=== PATIENT | female | born 1980 | race Caucasian/White ===

== ENCOUNTER 2019-02-11 11:45 | Inpatient (IN) | payer OTHER ==
[2019-02-11] MEDS ORDERED: ZOFRAN IV ONE (12:14)
[2019-02-11] MEDS ORDERED: SUBLIMAZE IV ONE (12:14)
[2019-02-11] MEDS ORDERED: ASPIRIN PO ONE (12:14)
--- NOTE | 2019-02-11 12:20 | Emergency Department Report ---
HPI - General Chief Complaint: Chest Pain Time Seen by Provider: 02/11/19 12:02 - HPI HPI: Room 26 The patient is a 38-year-old female presenting with a chief complaint of chest pain and calf pain. Patient is currently at [facility] for suicidal id eation. The patient states 3 days ago she developed bilateral calf pain which has worsened over time. The patient states yesterday she developed substernal chest pain described as sharp and dull in nature. Patient states the pain has been intermittent and associated with shortness of breath, nausea/vomiting and diaphoresis. Patient admits to occasional pleurisy. The patient states she's had a cough has been nonproductive since yesterday. The patient states she has a history of a DVT in the lower extremity years ago and is not currently on anticoagulation. Patient states her last stress test occurred approximately 5 years ago but she has never had a cardiac catheterization Location: [See above] Duration: [See above] Quality: Sharp/dull Severity: 4-5/10 Modifying factors: [see above] Context: [see above] Mode of transportation: [not driving] ED Past Medical Hx - Past Medical History Previous Medical History?: Yes Hx Headaches / Migraines: Yes Hx Psychiatric Treatment: Yes (bipolar) Additional medical history: hypotension from meds from migraines - Surgical History Past Surgical History?: Yes Additional Surgical History: tummy tuck, lipo - Family History Family history: no significant - Social History Smoking Status: Never Smoker Substance Use Type: None (denies illicit drug use), Alcohol (occasional) ED Review of Systems ROS: Stated complaint: CHEST/CALF PAIN Other details as noted in HPI Constitutional: diaphoresis Eyes: denies: eye pain ENT: denies: throat pain Respiratory: shortness of breath Cardiovascular: chest pain Gastrointestinal: nausea, vomiting Genitourinary: denies: dysuria Musculoskeletal: myalgia Neurological: denies: headache Physical Exam - Physical Exam Vital Signs: Vital Signs 02/11/19 11:51 Temperature 98.1 F Pulse Rate 86 Respiratory 16 Rate Blood Pressure 116/84 [Left] O2 Sat by Pulse 95 Oximetry Physical Exam: GENERAL: The patient is well-developed well-nourished female lying on stretcher not appearing to be in acute distress. [] HEENT: Normocephalic. Atraumatic. Extraocular motions are intact. Patient has moist mucous membranes. NECK: Supple. Trachea midline CHEST/LUNGS: Clear to auscultation. There is no respiratory distress noted. HEART/CARDIOVASCULAR: Regular. There is no tachycardia. There is no gallop rub or murmur. ABDOMEN: Abdomen is soft, nontender. Patient has normal bowel sounds. There is no abdominal distention. SKIN: There is no rash. There is no edema. There is no diaphoresis. NEURO: The patient is awake, alert, and oriented. The patient is cooperative. The patient has normal speech MUSCULOSKELETAL: There is bilateral calf tenderness. No cords felt. There is no evidence of acute injury. ED Course Vital Signs 02/11/19 11:51 Temperature 98.1 F Pulse Rate 86 Respiratory 16 Rate Blood Pressure 116/84 [Left] O2 Sat by Pulse 95 Oximetry ED Medical Decision Making - Lab Data Result diagrams: 02/11/19 15:08 02/11/19 12:00 Laboratory Tests 02/11/19 02/11/19 02/11/19 12:00 12:00 12:00 WBC 7.8 RBC 4.41 Hgb 12.1 Hct 37.5 MCV 85 MCH 28 MCHC 32 RDW 12.8 L Plt Count 249 Lymph % (Auto) 18.3 Overton % (Auto) 7.7 H Eos % (Auto) 1.2 Baso % (Auto) 0.5 Lymph # 1.4 Overton # 0.6 Eos # 0.1 Baso # 0.0 Seg Neutrophils % 72.3 H Seg Neutrophils # 5.6 PT INR APTT D-Dimer 979.05 H Sodium 137 Potassium 4.1 Chloride 99.0 Carbon Dioxide 26 Anion Gap 16 BUN 9 Creatinine 0.6 L Estimated GFR > 60 BUN/Creatinine Ratio 15 Glucose 111 H Calcium 8.9 Troponin T < 0.010 HCG, Qual 02/11/19 02/11/19 02/11/19 12:00 14:37 15:08 WBC RBC Hgb 11.8 Hct 35.7 MCV MCH MCHC RDW Plt Count 247 Lymph % (Auto) Overton % (Auto) Eos % (Auto) Baso % (Auto) Lymph # Overton # Eos # Baso # Seg Neutrophils % Seg Neutrophils # PT 13.8 INR 1.00 APTT 26.9 D-Dimer Sodium Potassium Chloride Carbon Dioxide Anion Gap BUN Creatinine Estimated GFR BUN/Creatinine Ratio Glucose Calcium Troponin T HCG, Qual Negative - EKG Data -: EKG Interpreted by Me EKG shows normal: sinus rhythm Rate: normal - EKG Data When compared to previous EKG there are: previous EKG unavailable Interpretation: nonspecific ST-T wave amarilys (T-wave inversion in leads 3, V2, V3, V4) - Radiology Data Radiology results: report reviewed (VQ scan), image reviewed (chest x-ray, VQ scan) interpreted by me: Chest x-ray-no focal infiltrates, no pneumothorax [facility] [address] [place] [address] Nuclear Medicine Report Signed Patient: TEMO BENSON MR#: [id number] : 1980 Acct:[id number] Age/Sex: 38 / F ADM Date: 02/11/19 Loc: ED Attending Dr: Ordering Physician: MARYANN JACOB MD Date of Service: 02/11/19 Procedure(s): NM lung scan perf/vent Accession Number(s): [id number] cc: MARYANN JACOB MD PROCEDURE: NM LUNG SCAN PERF/VENT TECHNIQUE: 4.6 mCi Tc-99m MAA was injected IV for pulmonary perfusion imaging in multiple projections. 15 mCi Xenon-133 was inhaled for pulmonary ventilation imaging in multiple projections. HISTORY: chest pain, shortness of breath COMPARISONS: Chest x-ray February 11, 2019. FINDINGS: Ventilation: Uniform. Perfusion: 1 large unmatched defect in both upper lobes. Small subsegmental perfusion deficits in both upper lobes and both lower lobes. IMPRESSION: * Based on the PIOPED study, findings represent high probability for PE. This document is electronically signed by Evan Bland MD., February 11 2019 03:31:51 PM ET Transcribed By: TYM Dictated By: EVAN BLAND MD Electronically Authenticated By: EVAN BLAND MD Signed Date/Time: 02/11/19 1533 DD/ 1432 TD/TT: 02/11/19 1435 - Differential Diagnosis PE, DVT, ACS, pericarditis, GERD, bronchitis Critical care attestation.: If time is entered above; I have spent that time in minutes in the direct care of this critically ill patient, excluding procedure time. ED Disposition Clinical Impression: Chest pain, T wave inversion in EKG, Pulmonary embolus, Left leg DVT Disposition: -09 OP ADMIT IP TO THIS HOSP Is pt being admited?: Yes Does the pt Need Aspirin: Yes Condition: Fair Instructions: Chest Pain (ED) Time of Disposition: 15:40 (Hospitalist notified (Dr Acevedo))
[2019-02-11 12:23] LABS: Basophils % (Auto) 0.5 % (0.0-1.8); Eosinophils # (Auto) 0.1 K/mm3 (0.0-0.4); Eosinophils % (Auto) 1.2 % (0.0-4.3); Hematocrit 37.5 % (30.3-42.9); Hemoglobin 12.1 gm/dl (10.1-14.3); Lymphocytes # (Auto) 1.4 K/mm3 (1.2-5.4); Lymphocytes % (Auto) 18.3 % (13.4-35.0); Mean Corpuscular HGB Conc 32 % (30-34); Mean Corpuscular Volume 85 fl (79-97); Monocytes # (Auto) 0.6 K/mm3 (0.0-0.8); Monocytes % (Auto) 7.7 % (0.0-7.3); Platelet Count 249 K/mm3 (140-440); Red Blood Count 4.41 M/mm3 (3.65-5.03); Red Cell Distribution Width 12.8 % (13.2-15.2)
[2019-02-11 12:43] LABS: BUN/Creatinine Ratio 15; Blood Urea Nitrogen 9 mg/dL (7-17); Calcium 8.9 mg/dL (8.4-10.2); Hemolysis Index 52
[2019-02-11] MEDS ORDERED: HEPARIN 10,000 UNITS/10 ML IV ONE (14:35)
--- NOTE | 2019-02-11 14:37 | Vascular Lab Report ---
PROCEDURE: VL VENOUS DUPLEX LE BILAT TECHNIQUE: Duplex Doppler sonography of the BILATERAL lower extremities. Garcia scale imaging with and without compression, spectral waveform analysis with and without augmentation, and color flow Dopple r were employed. HISTORY: bilateral pain COMPARISONS: None FINDINGS: RIGHT lower EXTREMITY: Deep Venous Thrombus: None Superficial Venous Thrombus: None Venous valvular incompetence: None Soft tissue abnormality: None LEFT LOWER EXTREMITY: Deep Venous Thrombus: Echogenic thrombus within the gastrocnemius vein. The remainder of the veins a re patent and compressible. Superficial Venous Thrombus: None Venous valvular incompetence: None Soft tissue abnormality: None IMPRESSION: Deep venous thrombosis in the left gastrocnemius vein. Patent veins of the right lower extremity. Findings were discussed with Dr. Khan at 2:34 PM, Eastern standard time, on 02/11/2019. This document is electronically signed by Dahlia Hong MD., February 11 2019 02:35:10 PM ET
[2019-02-11 14:45] LABS: Partial Thromboplastin Time 26.9 Sec. (24.2-36.6)
[2019-02-11] MEDS ORDERED: HEPARIN/ 0.45% NACL-25,000 UNIT/500 ML 25,000 UNIT/500 ML BAG IV SCH (15:00)
[2019-02-11 15:22] LABS: Hematocrit 35.7 % (30.3-42.9); Hemoglobin 11.8 gm/dl (10.1-14.3)
--- NOTE | 2019-02-11 15:33 | Nuclear Medicine Report ---
PROCEDURE: NM LUNG SCAN PERF/VENT TECHNIQUE: 4.6 mCi Tc-99m MAA was injected IV for pulmonary perfusion imaging in multiple projection s. 15 mCi Xenon-133 was inhaled for pulmonary ventilation imaging in multiple projections. HISTORY: chest pain, shortness of breath COMPARISONS: Chest x-ray February 11, 2019. FINDINGS: Ventilation: Uniform. Perfusion: 1 large unmatched defect in both upper lobes. Small subsegmental perfusion deficits in bot h upper lobes and both lower lobes. IMPRESSION: * Based on the PIOPED study, findings represent high probability for PE. This document is electronically signed by Evan Lopez MD., February 11 2019 03:31:51 PM ET
--- NOTE | 2019-02-11 15:37 | XRay Report ---
PROCEDURE: XR CHEST 1V AP TECHNIQUE: Single frontal view of the chest HISTORY: chest pain COMPARISONS: None. FINDINGS: The cardiomediastinal silhouette is normal in appearance. The lungs are clear without focal consolidation. No pleural effusion or pneumothorax. No acute bony or soft tissue abnormality. IMPRESSION: No acute cardiopulmonary disease. This document is electronically signed by Dahlia Hong MD., February 11 2019 03:35:23 PM ET
[2019-02-11] MEDS ORDERED: SODIUM CHLORIDE FLUSH SYRINGE 10 ML IV PRN (18:23)
[2019-02-11] MEDS ORDERED: TYLENOL PO PRN (18:23)
--- NOTE | 2019-02-11 18:23 | History and Physical Report ---
History of Present Illness Date of examination: 02/11/19 Date of admission: 02/11/19 15:13 Chief complaint: Ghassan calf pain 3 days History of present illness: 38-year-old female presenting with a chief complaint of chest pain and calf pain. Patient is currently at [facility] for suicidal ideation. The patient states 3 days ago she developed bilateral calf pain which has worsened over time. The patient states yesterday she developed substernal chest pain mani cribed as sharp and dull in nature. Patient states the pain has been intermittent and associated with shortness of breath, nausea/vomiting and diaphoresis. Patient admits to occasional pleurisy. History of DVT many years ago.Not on anticoagulation. Past Medical History Previous Medical History?: Yes Hx Headaches / Migraines: Yes Hx Psychiatric Treatment: Yes (bipolar) Additional medical history: hypotension from meds from migraines Surgical History Past Surgical History?: Yes Additional Surgical History: tummy tuck, lipo Family History Family history: no significant Social History Smoking Status: Never Smoker Substance Use Type: None (denies illicit drug use), Alcohol (occasional) Review of Systems ROS: Stated complaint: CHEST/CALF PAIN Other details as noted in HPI Constitutional: diaphoresis Eyes: denies: eye pain ENT: denies: throat pain Respiratory: shortness of breath Cardiovascular: chest pain Gastrointestinal: nausea, vomiting Genitourinary: denies: dysuria Musculoskeletal: myalgia Neurological: denies: headache Medications and Allergies Allergies Allergy/AdvReac Type Severity Reaction Status Date / Time iodine Allergy Unknown Verified 02/11/19 11:52 Home Medications Medication Instructions Recorded Confirmed Last Taken Type ARIPiprazole [Abilify] 10 mg PO QDAY 02/11/19 02/11/19 Unknown History Active Meds: Active Medications Heparin Sodium/Sodium Chloride (Heparin/ 0.45% Nacl-25,000 Unit/500 Ml) 25,000 unit in 500 mls @ 21 mls/hr IV TITR YUMI; Protocol Last Admin: 02/11/19 15:32 Dose: 1,050 units/hr, 21 mls/hr Documented by: Exam - Constitutional Vitals: Temp Pulse Resp BP Pulse Ox 97.8 F 67 13 102/67 99 02/11/19 15:37 02/11/19 15:37 02/11/19 15:37 02/11/19 15:37 02/11/19 15:37 General appearance: Present: no acute distress, well-nourished - EENT Eyes: Present: PERRL ENT: hearing intact, clear oral mucosa - Neck Neck: Present: supple, normal ROM - Respiratory Respiratory effort: normal Respiratory: bilateral: CTA - Cardiovascular Heart rate: 78 Rhythm: regular Heart Sounds: Present: S1 & S2. Absent: rub, click - Extremities Extremities: pulses symmetrical, No edema Extremity abnormal: tenderness (Bilateral) Peripheral Pulses: within normal limits - Abdominal General gastrointestinal: Present: soft, non-tender, non-distended, normal bowel sounds Female genitourinary: Present: normal - Rectal Rectal Exam: deferred - Integumentary Integumentary: Present: clear, warm, dry - Musculoskeletal Musculoskeletal: gait normal, strength equal bilaterally - Psychiatric Psychiatric: appropriate mood/affect, intact judgment & insight - Neurologic Neurologic: CNII-XII intact, moves all extremities - Allied Health Allied health notes reviewed: nursing, case management Results - Labs CBC & Chem 7: 02/12/19 04:28 02/12/19 04:28 Labs: Laboratory Last Values WBC 7.8 K/mm3 (4.5-11.0) 02/11/19 12:00 RBC 4.41 M/mm3 (3.65-5.03) 02/11/19 12:00 Hgb 11.8 gm/dl (10.1-14.3) 02/11/19 15:08 Hct 35.7 % (30.3-42.9) 02/11/19 15:08 MCV 85 fl (79-97) 02/11/19 12:00 MCH 28 pg (28-32) 02/11/19 12:00 MCHC 32 % (30-34) 02/11/19 12:00 RDW 12.8 % (13.2-15.2) L 02/11/19 12:00 Plt Count 247 K/mm3 (140-440) 02/11/19 15:08 Lymph % (Auto) 18.3 % (13.4-35.0) 02/11/19 12:00 Latimer % (Auto) 7.7 % (0.0-7.3) H 02/11/19 12:00 Eos % (Auto) 1.2 % (0.0-4.3) 02/11/19 12:00 Baso % (Auto) 0.5 % (0.0-1.8) 02/11/19 12:00 Lymph # 1.4 K/mm3 (1.2-5.4) 02/11/19 12:00 Latimer # 0.6 K/mm3 (0.0-0.8) 02/11/19 12:00 Eos # 0.1 K/mm3 (0.0-0.4) 02/11/19 12:00 Baso # 0.0 K/mm3 (0.0-0.1) 02/11/19 12:00 Seg Neutrophils % 72.3 % (40.0-70.0) H 02/11/19 12:00 Seg Neutrophils # 5.6 K/mm3 (1.8-7.7) 02/11/19 12:00 PT 13.8 Sec. (12.2-14.9) 02/11/19 14:37 INR 1.00 (0.87-1.13) 02/11/19 14:37 APTT 26.9 Sec. (24.2-36.6) 02/11/19 14:37 D-Dimer 979.05 ng/mlDDU (0-234) H 02/11/19 12:00 Sodium 137 mmol/L (137-145) 02/11/19 12:00 Potassium 4.1 mmol/L (3.6-5.0) 02/11/19 12:00 Chloride 99.0 mmol/L (98-107) 02/11/19 12:00 Carbon Dioxide 26 mmol/L (22-30) 02/11/19 12:00 Anion Gap 16 mmol/L 02/11/19 12:00 BUN 9 mg/dL (7-17) 02/11/19 12:00 Creatinine 0.6 mg/dL (0.7-1.2) L 02/11/19 12:00 Estimated GFR > 60 ml/min 02/11/19 12:00 BUN/Creatinine Ratio 15 % 02/11/19 12:00 Glucose 111 mg/dL (65-100) H 02/11/19 12:00 Calcium 8.9 mg/dL (8.4-10.2) 02/11/19 12:00 Troponin T < 0.010 ng/mL (0.00-0.029) 02/11/19 12:00 HCG, Qual Negative (Negative) 02/11/19 12:00 Short CBC 02/11/19 02/11/19 02/12/19 Range/Units 12:00 15:08 04:28 WBC 7.8 6.3 (4.5-11.0) K/mm3 Hgb 12.1 11.8 11.3 (10.1-14.3) gm/dl Hct 37.5 35.7 34.3 (30.3-42.9) % Plt Count 249 247 243 (140-440) K/mm3 BMP 02/11/19 02/12/19 12:00 04:28 Sodium 137 137 Potassium 4.1 3.5 L Chloride 99.0 98.4 Carbon Dioxide 26 28 BUN 9 10 Creatinine 0.6 L 0.7 Glucose 111 H 98 Calcium 8.9 8.3 L Cardiac Enzymes 02/11/19 Range/Units 12:00 Troponin T < 0.010 (0.00-0.029) ng/mL Liver Function 02/12/19 Range/Units 04:28 Total Bilirubin 0.20 (0.1-1.2) mg/dL AST 27 (5-40) units/L ALT 25 (7-56) units/L Alkaline Phosphatase 63 (35-129) units/L Albumin 3.4 L (3.9-5) g/dL - Imaging and Cardiology EKG: report reviewed (NSR 90/min lvh) Imaging and Cardiology: LE Venous Duplex scan IMPRESSION: Deep venous thrombosis in the left gastrocnemius vein. Patent veins of the right lower extremity. V/q scan FINDINGS: Ventilation: Uniform. Perfusion: 1 large unmatched defect in both upper lobes. Small subsegmental perfusion deficits in both upper lobes and both lower lobes. IMPRESSION: * Based on the PIOPED study, findings represent high probability for PE. Assessment and Plan Advance Directives: Yes (Full code) VTE prophylaxis?: Chemical Plan of care discussed with patient/family: Yes - Patient Problems (1) Left leg DVT Current Visit: Yes Status: Acute Plan to address problem: Started on IV Heparin Will defer to primary team reg Eliquis/Coumadin (2) Pulmonary embolus Current Visit: Yes Status: Acute Qualifiers: Chronicity: acute Acute cor pulmonale presence: without acute cor pulmonale Plan to address problem: Started on IV Heparin Will defer to Primary team reg Eliquis/Coumadin Vascular surgery consulted reg TESS (3) Suicidal ideation Current Visit: Yes Status: Acute Plan to address problem: From [place] consult requested (4) DVT prophylaxis Current Visit: Yes Status: Acute Plan to address problem: On IV Heparin and GI prophylaxis
[2019-02-11] MEDS ORDERED: DILAUDID IV PRN (18:24)
[2019-02-11] MEDS ORDERED: D5NS 1,000 ML IV SCH (19:00)
[2019-02-11] MEDS ORDERED: PERCOCET 5/325 ONE (20:11)
[2019-02-11] MEDS: PERCOCET 5/325 PO PRN (20:18)
[2019-02-11] MEDS: SODIUM CHLORIDE FLUSH SYRINGE 10 ML IV SCH (22:22)
[2019-02-12] MEDS: ZOFRAN IV PRN (04:31)
[2019-02-12 05:05] LABS: Basophils % (Auto) 0.6 % (0.0-1.8); Eosinophils # (Auto) 0.2 K/mm3 (0.0-0.4); Eosinophils % (Auto) 2.7 % (0.0-4.3); Hematocrit 34.3 % (30.3-42.9); Hemoglobin 11.3 gm/dl (10.1-14.3); Lymphocytes # (Auto) 2.3 K/mm3 (1.2-5.4); Lymphocytes % (Auto) 36.3 % (13.4-35.0); Mean Corpuscular HGB Conc 33 % (30-34); Mean Corpuscular Volume 85 fl (79-97); Monocytes # (Auto) 0.6 K/mm3 (0.0-0.8); Monocytes % (Auto) 8.9 % (0.0-7.3); Platelet Count 243 K/mm3 (140-440); Red Blood Count 4.04 M/mm3 (3.65-5.03); Red Cell Distribution Width 13.2 % (13.2-15.2)
[2019-02-12 05:11] LABS: Alanine Aminotransferase 25 units/L (7-56); Albumin 3.4 g/dL (3.9-5); BUN/Creatinine Ratio 14; Blood Urea Nitrogen 10 mg/dL (7-17); Calcium 8.3 mg/dL (8.4-10.2); Hemolysis Index 3
[2019-02-12] MEDS ORDERED: NACL 0.9% 500 ML 500 ML IV ONE (09:11)
[2019-02-12] MEDS ORDERED: K-DUR PO ONE (09:12)
[2019-02-12] MEDS: SODIUM CHLORIDE FLUSH SYRINGE 10 ML IV SCH ×2 (09:52→22:54)
[2019-02-12] MEDS ORDERED: ELIQUIS PO SCH (12:00)
[2019-02-12] MEDS: ELIQUIS PO SCH ×2 (14:45→22:54)
--- NOTE | 2019-02-12 15:20 | Consultation ---
History of Present Illness - Reason for Consult Consult date: 02/12/19 - History of Present Illness She is a 38-year-old female who began having mostly left calf discomfort and soreness during a hospitalization for an unrelated psychiatric issue. The discomfort worsened over the next several days she developed chest pain and shortness of breath. She was sent to the emergency room at [facility] where a lung scan was performed (V/Q) . Reported as high probability of pulmonary embolus. Subsequent venous duplex scan showed left gastroc venous thrombosis. She was begun on heparin intravenously. We were consulted to evaluate her for further treatment. There is a recent history of traveling to [place] within the last 6 weeks. She also has noted that on previous trips she would get left calf and foot swelling a lesser amount noted on the right. He didn't complain of previous soreness or known history of DVT but did note that the feet would remain swollen for several days upon arrival. Her cc had suspected this was due to the high salt content of [place]. She notes she did have some difficulty swelling during pregnancies but her last was 15 years ago. She denies the use of control pills. Not take hormones. She knows of no known hypercoagulable diagnoses. Family history is positive for lupus in a grandmother but no other clotting disorders. Past History Past Medical History: DVT, pulmonary embolism Past Surgical History: Other (tummy tuck, liposuction) Social history: , smoking Family history: other (Lupus, stroke) Medications and Allergies Allergies Allergy/AdvReac Type Severity Reaction Status Date / Time iodine Allergy Unknown Verified 02/11/19 11:52 Home Medications Medication Instructions Recorded Confirmed Last Taken Type ARIPiprazole [Abilify] 10 mg PO QDAY 02/11/19 02/11/19 Unknown History Active Meds: Active Medications Acetaminophen (Tylenol) 650 mg PO Q4H PRN PRN Reason: Pain MILD(1-3)/Fever >100.5/TRINH Apixaban (Eliquis) 10 mg PO Q12HR [facility]; Protocol Last Admin: 02/12/19 14:45 Dose: 10 mg Documented by: Hydromorphone HCl (Dilaudid) 0.5 mg IV Q3H PRN PRN Reason: Pain , Severe (7-10) Ondansetron HCl (Zofran) 4 mg IV Q8H PRN PRN Reason: Nausea And Vomiting Last Admin: 02/12/19 04:31 Dose: 4 mg Documented by: Oxycodone/Acetaminophen (Percocet 5/325) 1 tab PO Q6H PRN PRN Reason: Pain, Moderate (4-6) Last Admin: 02/11/19 20:18 Dose: 1 tab Documented by: Sodium Chloride (Sodium Chloride Flush Syringe 10 Ml) 10 ml IV BID YUMI Last Admin: 02/12/19 09:52 Dose: 10 ml Documented by: Sodium Chloride (Sodium Chloride Flush Syringe 10 Ml) 10 ml IV PRN PRN PRN Reason: LINE FLUSH Review of Systems All systems: negative (that in the HPI) Exam - Physical Exam Narrative exam: She is an alert and oriented 38-year-old female in no acute distress. She is on room air. HEENT examination reveals anicteric sclerae mucous membranes are moist. Lungs are clear to auscultation and percussion. Neck reveals a regular rate and rhythm no murmurs or gallops. Abdomen is soft without hepatosplenomegaly. Tummy tuck incisions are noted. Lower extremity show normal pedal pulses. No significant swelling. No skin discoloration. Minor left calf discomfort midline posterior top of the calf over the gastroc/ soleus plexus. Neurological examination is normal. - Constitutional Vitals: Temp Pulse Resp BP Pulse Ox 97.7 F 83 14 119/72 96 02/12/19 12:05 02/12/19 12:05 02/12/19 12:05 02/12/19 12:05 02/12/19 12:05 Results - Labs CBC & Chem 7: 02/12/19 04:28 02/12/19 04:28 Labs: Abnormal lab results 02/11/19 02/12/19 02/12/19 Range/Units 20:56 04:28 04:28 Lymph % (Auto) 36.3 H (13.4-35.0) % Harvey % (Auto) 8.9 H (0.0-7.3) % Heparin Anti-Xa Level 0.71 H (0.3-0.7) U.I./ml Potassium 3.5 L (3.6-5.0) mmol/L Calcium 8.3 L (8.4-10.2) mg/dL Albumin 3.4 L (3.9-5) g/dL - Imaging and Cardiology Venous US: report reviewed Assessment and Plan - Patient Problems (1) Left leg DVT Current Visit: Yes Status: Acute Qualifiers: Affected thrombotic vein of extremity: other lower extremity vein Chronicity: acute Qualified Code(s): I82.492 - Acute embolism and thrombosis of other specified deep vein of left lower extremity Plan to address problem: Patient be placed on oral anticoagulant and would recommend one of the newer oral anticoagulants. Would discontinue heparin 2 hours after initiation of therapy. She can be out of bed and ambulatory. I am not totally sure if this is a provoked or unprovoked thrombus although she did have travel within the last 6 weeks. Would consider hematology evaluation for underlying hypercoagulable state. This could be initiated and/or completed as an outpatient. (2) Pulmonary embolus Current Visit: Yes Status: Acute Qualifiers: Chronicity: acute Acute cor pulmonale presence: without acute cor pulmonale Qualified Code(s): I26.99 - Other pulmonary embolism without acute cor pulmonale Plan to address problem: Would treat for 6 months of oral anticoagulant. Consider hypercoagulable evaluation prior to discontinuation. Patient is at the low risk of major complications of her pulmonary embolism and does not require thrombolyzes. From a purely vascular standpoint patient can be discharged after 2 hours from initiation of multiple oral anticoagulant therapy and discontinuation of her heparin. She will follow up in our office in several weeks for repeat lower extremity duplex scanning
--- NOTE | 2019-02-12 16:18 | Progress Note ---
Assessment and Plan Assessment and plan: Left lower extremity DVT/PE -Probably provoked due to recent travel and Ist episode. However, patient r eported possible family history of clot -Heparin drip discontinued, eliquis started -For out-pt hematology follow-up History of bipolar disorder with suicidal ideation -Mental health team consulted Mild hypokalemia -Repleted, we'll monitor H/O migraine headaches -Stable Chronic hypotension -Stable Disposition: For possible discharge in a.m. if clinically stable History Interval history: Patient has no new complaints. Her left leg pain has improved. Hospitalist Physical - Constitutional Vitals: Temp Pulse Resp BP Pulse Ox 97.7 F 83 14 119/72 96 02/12/19 12:05 02/12/19 12:05 02/12/19 12:05 02/12/19 12:05 02/12/19 12:05 General appearance: Present: no acute distress, well-nourished - EENT Eyes: Present: PERRL, EOM intact ENT: hearing intact, clear oral mucosa - Neck Neck: Present: supple - Respiratory Respiratory effort: normal Respiratory: bilateral: CTA - Cardiovascular Rhythm: regular Heart Sounds: Present: S1 & S2 - Extremities Extremities: No edema - Abdominal General gastrointestinal: soft, non-tender, normal bowel sounds - Integumentary Integumentary: Present: clear, warm, dry - Neurologic Neurologic: CNII-XII intact Results - Labs CBC & Chem 7: 02/12/19 04:28 02/12/19 04:28 Labs: Laboratory Last Values WBC 6.3 K/mm3 (4.5-11.0) 02/12/19 04:28 RBC 4.04 M/mm3 (3.65-5.03) 02/12/19 04:28 Hgb 11.3 gm/dl (10.1-14.3) 02/12/19 04:28 Hct 34.3 % (30.3-42.9) 02/12/19 04:28 MCV 85 fl (79-97) 02/12/19 04:28 MCH 28 pg (28-32) 02/12/19 04:28 MCHC 33 % (30-34) 02/12/19 04:28 RDW 13.2 % (13.2-15.2) 02/12/19 04:28 Plt Count 243 K/mm3 (140-440) 02/12/19 04:28 Lymph % (Auto) 36.3 % (13.4-35.0) H 02/12/19 04:28 [place] % (Auto) 8.9 % (0.0-7.3) H 02/12/19 04:28 Eos % (Auto) 2.7 % (0.0-4.3) 02/12/19 04:28 Baso % (Auto) 0.6 % (0.0-1.8) 02/12/19 04:28 Lymph # 2.3 K/mm3 (1.2-5.4) 02/12/19 04:28 [place] # 0.6 K/mm3 (0.0-0.8) 02/12/19 04:28 Eos # 0.2 K/mm3 (0.0-0.4) 02/12/19 04:28 Baso # 0.0 K/mm3 (0.0-0.1) 02/12/19 04:28 Seg Neutrophils % 51.5 % (40.0-70.0) 02/12/19 04:28 Seg Neutrophils # 3.2 K/mm3 (1.8-7.7) 02/12/19 04:28 PT 13.8 Sec. (12.2-14.9) 02/11/19 14:37 INR 1.00 (0.87-1.13) 02/11/19 14:37 APTT 26.9 Sec. (24.2-36.6) 02/11/19 14:37 D-Dimer 979.05 ng/mlDDU (0-234) H 02/11/19 12:00 Heparin Anti-Xa Level 0.60 U.I./ml (0.3-0.7) 02/12/19 04:28 Sodium 137 mmol/L (137-145) 02/12/19 04:28 Potassium 3.5 mmol/L (3.6-5.0) L 02/12/19 04:28 Chloride 98.4 mmol/L (98-107) 02/12/19 04:28 Carbon Dioxide 28 mmol/L (22-30) 02/12/19 04:28 Anion Gap 14 mmol/L 02/12/19 04:28 BUN 10 mg/dL (7-17) 02/12/19 04:28 Creatinine 0.7 mg/dL (0.7-1.2) 02/12/19 04:28 Estimated GFR > 60 ml/min 02/12/19 04:28 BUN/Creatinine Ratio 14 % 02/12/19 04:28 Glucose 98 mg/dL (65-100) 02/12/19 04:28 Hemoglobin A1c 5.7 % (4-6) 02/11/19 15:08 Calcium 8.3 mg/dL (8.4-10.2) L 02/12/19 04:28 Total Bilirubin 0.20 mg/dL (0.1-1.2) 02/12/19 04:28 AST 27 units/L (5-40) 02/12/19 04:28 ALT 25 units/L (7-56) 02/12/19 04:28 Alkaline Phosphatase 63 units/L (35-129) 02/12/19 04: Troponin T < 0.010 ng/mL (0.00-0.029) 02/11/19 12:00 Total Protein 6.3 g/dL (6.3-8.2) 02/12/19 04:28 Albumin 3.4 g/dL (3.9-5) L 02/12/19 04:28 Albumin/Globulin Ratio 1.2 % 02/12/19 04:28 HCG, Qual Negative (Negative) 02/11/19 12:00 Active Medications - Current Medications Current Medications: Generic Name Dose Route Start Last Admin Trade Name Freq PRN Reason Stop Dose Admin Acetaminophen 650 mg 02/11/19 18:23 Tylenol PO Q4H PRN Pain MILD(1-3)/Fever >100.5/TRINH Apixaban 10 mg 02/12/19 10:00 02/12/19 14:45 Eliquis PO 10 mg Q12HR YUMI Administration Protocol Hydromorphone HCl 0.5 mg 02/11/19 18:24 Dilaudid IV Q3H PRN Pain , Severe (7-10) Ondansetron HCl 4 mg 02/11/19 18:23 02/12/19 04:31 Zofran IV 4 mg Q8H PRN Administration Nausea And Vomiting Oxycodone/Acetaminophen 1 tab 02/11/19 18:24 02/11/19 20:18 Percocet 5/325 PO 1 tab Q6H PRN Administration Pain, Moderate (4-6) Sodium Chloride 10 ml 02/11/19 22:00 02/12/19 09:52 Sodium Chloride Flush Syringe 10 Ml IV 10 ml BID YUMI Administration Sodium Chloride 10 ml 02/11/19 18:23 Sodium Chloride Flush Syringe 10 Ml IV PRN PRN LINE FLUSH
[2019-02-13 07:41] LABS: BUN/Creatinine Ratio 20; Blood Urea Nitrogen 12 mg/dL (7-17); Calcium 8.5 mg/dL (8.4-10.2); Hemolysis Index 8
[2019-02-13] MEDS: ELIQUIS PO SCH ×2 (10:23→21:45)
[2019-02-13] MEDS: SODIUM CHLORIDE FLUSH SYRINGE 10 ML IV SCH ×2 (10:23→21:45)
--- NOTE | 2019-02-13 13:24 | Progress Note ---
Assessment and Plan Assessment and plan: Left lower extremity DVT/PE -Ist episode, probably provoked due to recent travel. However, patient reported possible family history of clot -Continue eliquis -For out-pt hematology follow-up History of bipolar disorder with suicidal attempt prior to admission -Patient placed on 1013 -Mental health team following Mild hypokalemia -Resolved H/O migraine headaches -Stable Chronic hypotension -Stable Disposition: Pt is medically cleared. Discharge per the mental health team History Interval history: Patient has no new complaints. She denies bleeding from any orifice Hospitalist Physical - Constitutional Vitals: Temp Pulse Resp BP Pulse Ox 98.1 F 79 19 118/64 98 02/13/19 12:00 02/13/19 12:00 02/13/19 12:00 02/13/19 12:00 02/13/19 08:55 General appearance: Present: no acute distress, well-nourished - EENT Eyes: Present: PERRL, EOM intact ENT: hearing intact, clear oral mucosa - Neck Neck: Present: supple - Respiratory Respiratory effort: normal Respiratory: bilateral: CTA - Cardiovascular Rhythm: regular Heart Sounds: Present: S1 & S2 - Extremities Extremities: No edema - Abdominal General gastrointestinal: soft, non-tender, normal bowel sounds - Neurologic Neurologic: CNII-XII intact Results - Labs CBC & Chem 7: 02/12/19 04:28 02/13/19 06:33 Labs: Laboratory Last Values WBC 6.3 K/mm3 (4.5-11.0) 02/12/19 04:28 RBC 4.04 M/mm3 (3.65-5.03) 02/12/19 04:28 Hgb 11.3 gm/dl (10.1-14.3) 02/12/19 04:28 Hct 34.3 % (30.3-42.9) 02/12/19 04:28 MCV 85 fl (79-97) 02/12/19 04:28 MCH 28 pg (28-32) 02/12/19 04:28 MCHC 33 % (30-34) 02/12/19 04:28 RDW 13.2 % (13.2-15.2) 02/12/19 04:28 Plt Count 243 K/mm3 (140-440) 02/12/19 04:28 Lymph % (Auto) 36.3 % (13.4-35.0) H 02/12/19 04:28 [place] % (Auto) 8.9 % (0.0-7.3) H 02/12/19 04:28 Eos % (Auto) 2.7 % (0.0-4.3) 02/12/19 04:28 Baso % (Auto) 0.6 % (0.0-1.8) 02/12/19 04: Lymph # 2.3 K/mm3 (1.2-5.4) 02/12/19 04:28 [place] # 0.6 K/mm3 (0.0-0.8) 02/12/19 04: Eos # 0.2 K/mm3 (0.0-0.4) 02/12/19 04:28 Baso # 0.0 K/mm3 (0.0-0.1) 02/12/19 04:28 Seg Neutrophils % 51.5 % (40.0-70.0) 02/12/19 04: Seg Neutrophils # 3.2 K/mm3 (1.8-7.7) 02/12/19 04:28 PT 13.8 Sec. (12.2-14.9) 02/11/19 14:37 INR 1.00 (0.87-1.13) 02/11/19 14:37 APTT 26.9 Sec. (24.2-36.6) 02/11/19 14:37 D-Dimer 979.05 ng/mlDDU (0-234) H 02/11/19 12:00 Heparin Anti-Xa Level 0.60 U.I./ml (0.3-0.7) 02/12/19 04:28 Sodium 140 mmol/L (137-145) 02/13/19 06:33 Potassium 4.3 mmol/L (3.6-5.0) D 02/13/19 06:33 Chloride 104.0 mmol/L (98-107) 02/13/19 06:33 Carbon Dioxide 26 mmol/L (22-30) 02/13/19 06:33 Anion Gap 14 mmol/L 02/13/19 06:33 BUN 12 mg/dL (7-17) 02/13/19 06:33 Creatinine 0.6 mg/dL (0.7-1.2) L 02/13/19 06:33 Estimated GFR > 60 ml/min 02/13/19 06:33 BUN/Creatinine Ratio 20 % 02/13/19 06:33 Glucose 120 mg/dL (65-100) H 02/13/19 06:33 Hemoglobin A1c 5.7 % (4-6) 02/11/19 15:08 Calcium 8.5 mg/dL (8.4-10.2) 02/13/19 06:33 Magnesium 2.10 mg/dL (1.7-2.3) 02/13/19 06:33 Total Bilirubin 0.20 mg/dL (0.1-1.2) 02/12/19 04:28 AST 27 units/L (5-40) 02/12/19 04:28 ALT 25 units/L (7-56) 02/12/19 04:28 Alkaline Phosphatase 63 units/L (35-129) 02/12/19 04:28 Troponin T < 0.010 ng/mL (0.00-0.029) 02/11/19 12:00 Total Protein 6.3 g/dL (6.3-8.2) 02/12/19 04:28 Albumin 3.4 g/dL (3.9-5) L 02/12/19 04:28 Albumin/Globulin Ratio 1.2 % 02/12/19 04:28 HCG, Qual Negative (Negative) 02/11/19 12:00 Active Medications - Current Medications Current Medications: Generic Name Dose Route Start Last Admin Trade Name Freq PRN Reason Stop Dose Admin Acetaminophen 650 mg 02/11/19 18:23 Tylenol PO Q4H PRN Pain MILD(1-3)/Fever >100.5/TRINH Apixaban 10 mg 02/12/19 10:00 02/13/19 10:23 Eliquis PO 02/18/19 22:01 10 mg Q12HR YUMI Administration Protocol Apixaban 5 mg 02/19/19 10:00 Eliquis PO Q12HR YUMI Hydromorphone HCl 0.5 mg 02/11/19 18:24 Dilaudid IV Q3H PRN Pain , Severe (7-10) Ondansetron HCl 4 mg 02/11/19 18:23 02/12/19 04:31 Zofran IV 4 mg Q8H PRN Administration Nausea And Vomiting Oxycodone/Acetaminophen 1 tab 02/11/19 18:24 02/11/19 20:18 Percocet 5/325 PO 1 tab Q6H PRN Administration Pain, Moderate (4-6) Sodium Chloride 10 ml 02/11/19 22:00 02/13/19 10:23 Sodium Chloride Flush Syringe 10 Ml IV 10 ml BID YUMI Administration Sodium Chloride 10 ml 02/11/19 18:23 Sodium Chloride Flush Syringe 10 Ml IV PRN PRN LINE FLUSH
--- NOTE | 2019-02-13 13:25 | Consultation ---
History of Present Illness - Reason for Consult Consult date: 02/13/19 Reason for consult: Mental Health Evaluation Requesting physician: SHALA AGEE - Chief Complaint Chief complaint: I did cut my wrist to kill myself" - History of Present Psychiatric Illness 38 y.o. female who presented to ER from [facility] for chest/calf pain. Today the patient is calm during the assessment. She stated that she attempted to kill herself by cutting both her wrists prior to going to [facility]. She stated that she was having marital issues with her who's a soldier at [place], [place]. She stated that he is scheduled to transfer to [facility] and don't want him to leave. She also stated that one of her children is away in college. She is vague about any other family issues when asked. She stated that her actions should have gotten her 's attention. She denies any previous suicide attempts in the past. She stated that she is seen by a psychiatrist at [place], [place]. Per collateral information from her Daniel Dan, he stated that his has a hx of a mood do. He stated that this was her first time attempting suicide. The patient denies SI/HI's and AVH's. She denies erratic sleep and a poor appetite, She denies recreational drug use and alcohol consumption (etoh). The process on how a patient's 1013 is rescinded was explained to the patient's Daniel Dan. Medications and Allergies Allergies Allergy/AdvReac Type Severity Reaction Status Date / Time iodine Allergy Unknown Verified 02/11/19 11:52 Home Medications Medication Instructions Recorded Confirmed Last Taken Type ARIPiprazole [Abilify] 10 mg PO QDAY 02/11/19 02/11/19 Unknown History Active Meds: Active Medications Acetaminophen (Tylenol) 650 mg PO Q4H PRN PRN Reason: Pain MILD(1-3)/Fever >100.5/TRINH Apixaban (Eliquis) 10 mg PO Q12HR YUMI; Protocol Stop: 02/18/19 22:01 Last Admin: 02/13/19 10:23 Dose: 10 mg Documented by: Apixaban (Eliquis) 5 mg PO Q12HR YUMI Hydromorphone HCl (Dilaudid) 0.5 mg IV Q3H PRN PRN Reason: Pain , Severe (7-10) Ondansetron HCl (Zofran) 4 mg IV Q8H PRN PRN Reason: Nausea And Vomiting Last Admin: 02/12/19 04:31 Dose: 4 mg Documented by: Oxycodone/Acetaminophen (Percocet 5/325) 1 tab PO Q6H PRN PRN Reason: Pain, Moderate (4-6) Last Admin: 02/11/19 20:18 Dose: 1 tab Documented by: Sodium Chloride (Sodium Chloride Flush Syringe 10 Ml) 10 ml IV BID YUMI Last Admin: 02/13/19 10:23 Dose: 10 ml Documented by: Sodium Chloride (Sodium Chloride Flush Syringe 10 Ml) 10 ml IV PRN PRN PRN Reason: LINE FLUSH Mental Status Exam - Vital signs Last Vital Signs Temp 98.1 F 02/13/19 12:00 Pulse 79 02/13/19 12:00 Resp 19 02/13/19 12:00 BP 118/64 02/13/19 12:00 Pulse Ox 98 02/13/19 08:55 - Exam Narrative exam: MSE: Appearance: calm, cooperative Behavior: regular eye contact Speech: regular rate and tone Mood: "okay" Affect: congruent to mood Thought Process: circumstantial Thought Content: denies SI/HI's and AVH's Motor Activity: ambulatory Cognition: A/O x3 Insight: variable to fair Judgment: variable ` Results Result Diagrams: 02/12/19 04:28 02/13/19 06:33 Abnormal lab results 02/13/19 Range/Units 06:33 Creatinine 0.6 L (0.7-1.2) mg/dL Glucose 120 H (65-100) mg/dL All other labs normal. Assessment and Plan Assessment and plan: Impression: MDD, Single Episode. Today the patient calm during the assessment. The patient's minimizes her actions. Possibly family Dynamics with this patient. DDx: R/O Bipolar DO Recommendation/Plan: Reevaluate the patient's 1013 in 24 hours. Risk/Benefits of SSRI's was discussed with the patient, she prefer talk therapy at this time. A safety contract and suicide risk assessment will be completed on the patient before her 1013 is rescinded. Dispo: If the patient's 1013 is rescinded in 24 hours, she can follow up with h er psychiatrist at [facility], [place] for outpatient psy services. Staffed with Dr George Vann.
[2019-02-13] MEDS: ZOFRAN IV PRN (15:01)
[2019-02-13] MEDS: PERCOCET 5/325 PO PRN (15:01)
[2019-02-14] MEDS: PERCOCET 5/325 PO PRN ×2 (04:27→13:07)
[2019-02-14] MEDS: ELIQUIS PO SCH (10:40)
[2019-02-14] MEDS: SODIUM CHLORIDE FLUSH SYRINGE 10 ML IV SCH (11:52)
[2019-02-14] MEDS ORDERED: DULCOLAX PR ONE (13:00)
--- NOTE | 2019-02-14 14:38 | Progress Note ---
Assessment and Plan Assessment and plan: Left lower extremity DVT/PE -Ist episode, probably provoked due to recent travel. However, patient reported possible family history of clot -Continue eliquis -For out-pt hematology follow-up History of bipolar disorder with suicidal attempt prior to admission -Continue 1013 -Mental health team following Mild hypokalemia -Resolved H/O migraine headaches -Stable Chronic hypotension -Stable Disposition: Pt is medically cleared for d/c. Discharge per the mental health team History Interval history: Patient complaining of intermittent pleuritic chest pain Hospitalist Physical - Constitutional Vitals: Temp Pulse Resp BP Pulse Ox 98.2 F 82 16 109/79 99 02/14/19 11:18 02/14/19 11:18 02/14/19 11:18 02/14/19 11:18 02/14/19 11:18 General appearance: Present: no acute distress, well-nourished - EENT Eyes: Present: PERRL, EOM intact ENT: hearing intact, clear oral mucosa - Neck Neck: Present: supple, normal ROM - Respiratory Respiratory effort: normal Respiratory: bilateral: CTA - Cardiovascular Rhythm: regular Heart Sounds: Present: S1 & S2 - Extremities Extremities: No edema - Abdominal General gastrointestinal: soft, non-tender, normal bowel sounds - Integumentary Integumentary: Present: warm, dry - Neurologic Neurologic: CNII-XII intact Results - Labs CBC & Chem 7: 02/12/19 04:28 02/13/19 06:33 Labs: Laboratory Last Values WBC 6.3 K/mm3 (4.5-11.0) 02/12/19 04:28 RBC 4.04 M/mm3 (3.65-5.03) 02/12/19 04:28 Hgb 11.3 gm/dl (10.1-14.3) 02/12/19 04:28 Hct 34.3 % (30.3-42.9) 02/12/19 04:28 MCV 85 fl (79-97) 02/12/19 04:28 MCH 28 pg (28-32) 02/12/19 04:28 MCHC 33 % (30-34) 02/12/19 04:28 RDW 13.2 % (13.2-15.2) 02/12/19 04:28 Plt Count 243 K/mm3 (140-440) 02/12/19 04:28 Lymph % (Auto) 36.3 % (13.4-35.0) H 02/12/19 04:28 [place] % (Auto) 8.9 % (0.0-7.3) H 02/12/19 04:28 Eos % (Auto) 2.7 % (0.0-4.3) 02/12/19 04:28 Baso % (Auto) 0.6 % (0.0-1.8) 02/12/19 04:28 Lymph # 2.3 K/mm3 (1.2-5.4) 02/12/19 04:28 [place] # 0.6 K/mm3 (0.0-0.8) 02/12/19 04:28 Eos # 0.2 K/mm3 (0.0-0.4) 02/12/19 04:28 Baso # 0.0 K/mm3 (0.0-0.1) 02/12/19 04:28 Seg Neutrophils % 51.5 % (40.0-70.0) 02/12/19 04: Seg Neutrophils # 3.2 K/mm3 (1.8-7.7) 02/12/19 04:28 PT 13.8 Sec. (12.2-14.9) 02/11/19 14:37 INR 1.00 (0.87-1.13) 02/11/19 14:37 APTT 26.9 Sec. (24.2-36.6) 02/11/19 14:37 D-Dimer 979.05 ng/mlDDU (0-234) H 02/11/19 12:00 Heparin Anti-Xa Level 0.60 U.I./ml (0.3-0.7) 02/12/19 04: Sodium 140 mmol/L (137-145) 02/13/19 06:33 Potassium 4.3 mmol/L (3.6-5.0) D 02/13/19 06:33 Chloride 104.0 mmol/L (98-107) 02/13/19 06:33 Carbon Dioxide 26 mmol/L (22-30) 02/13/19 06:33 Anion Gap 14 mmol/L 02/13/19 06:33 BUN 12 mg/dL (7-17) 02/13/19 06:33 Creatinine 0.6 mg/dL (0.7-1.2) L 02/13/19 06:33 Estimated GFR > 60 ml/min 02/13/19 06:33 BUN/Creatinine Ratio 20 % 02/13/19 06:33 Glucose 120 mg/dL (65-100) H 02/13/19 06:33 Hemoglobin A1c 5.7 % (4-6) 02/11/19 15:08 Calcium 8.5 mg/dL (8.4-10.2) 02/13/19 06:33 Magnesium 2.10 mg/dL (1.7-2.3) 02/13/19 06:33 Total Bilirubin 0.20 mg/dL (0.1-1.2) 02/12/19 04:28 AST 27 units/L (5-40) 02/12/19 04:28 ALT 25 units/L (7-56) 02/12/19 04:28 Alkaline Phosphatase 63 units/L (35-129) 02/12/19 04:28 Troponin T < 0.010 ng/mL (0.00-0.029) 02/11/19 12:00 Total Protein 6.3 g/dL (6.3-8.2) 02/12/19 04:28 Albumin 3.4 g/dL (3.9-5) L 02/12/19 04:28 Albumin/Globulin Ratio 1.2 % 02/12/19 04:28 HCG, Qual Negative (Negative) 02/11/19 12:00 Active Medications - Current Medications Current Medications: Generic Name Dose Route Start Last Admin Trade Name Freq PRN Reason Stop Dose Admin Acetaminophen 650 mg 02/11/19 18:23 Tylenol PO Q4H PRN Pain MILD(1-3)/Fever >100.5/TRINH Apixaban 10 mg 02/12/19 10:00 02/14/19 10:40 Eliquis PO 02/18/19 22:01 10 mg Q12HR YUMI Administration Protocol Apixaban 5 mg 02/19/19 10:00 Eliquis PO Q12HR YUMI Hydromorphone HCl 0.5 mg 02/11/19 18:24 Dilaudid IV Q3H PRN Pain , Severe (7-10) Ondansetron HCl 4 mg 02/11/19 18:23 02/13/19 15:01 Zofran IV 4 mg Q8H PRN Administration Nausea And Vomiting Oxycodone/Acetaminophen 1 tab 02/11/19 18:24 02/14/19 13:07 Percocet 5/325 PO 1 tab Q6H PRN Administration Pain, Moderate (4-6) Sodium Chloride 10 ml 02/11/19 22:00 02/14/19 11:52 Sodium Chloride Flush Syringe 10 Ml IV 10 ml BID YUMI Administration Sodium Chloride 10 ml 02/11/19 18:23 Sodium Chloride Flush Syringe 10 Ml IV PRN PRN LINE FLUSH
--- NOTE | 2019-02-14 15:09 | Progress Note ---
Subjective - Reason for Consult Consult date: 02/14/19 Reason for consult: Psychiatry Follow-up - Chief Complaint Chief complaint: 'I will see a therapist as well" 38 y.o. female who presented to ER from [facility] for chest/calf pain. Today the patient is calm and cooperative during the assessment. She stated that she will follow up with [facility] Psychiatry for outpatient psy services once discharged. She stated that she will include therapy sessions at her outpatient appts. She denies SI/HI's and AVH's. Mental Status Exam - Vital signs Last Vital Signs Temp 98.2 F 02/14/19 11:18 Pulse 82 02/14/19 11:18 Resp 16 02/14/19 11:18 BP 109/79 02/14/19 11:18 Pulse Ox 99 02/14/19 11:18 - Exam Narrative exam: MSE: Appearance: calm, cooperative Behavior: regular eye contact Speech: regular rate and tone Mood: "okay" Affect: congruent to mood Thought Process: linear Thought Content: denies SI/HI's and AVH's Motor Activity: ambulatory Cognition: A/O x3 Insight: appropriate Judgment: appropriate Assessment and Plan Impression: MDD, Single Episode. Today the patient calm during the assessment. The patient is no threat to self. DDx: R/O Bipolar DO Suicide Risk Assessment I. This screening and assessment is based on information collected from the following sources: II. SUICIDE RISK SCREENING (within last 30 days): A.) Suicidal thoughts/behaviors: Yes SUICIDE RISK ASSESSMENT III. FACTORS THAT INCREASE RISK: A.) Demographic and Substance Use Factors: No B.) Current/Recent Factors (within past 3 months): Psychosocial/Environmental Factors: Marital Stressors Physical Illness: None Cognitive/Psychological Factors: None C.) Historical Factors: None D.) Diagnostic/Symptom/Treatment Factors: None E.) Acute Risk Factor Severity (DESC; MILD/MOD/SEVERE): Mild Other factors for this individual that increase risk: None IV. FACTORS THAT DECREASE RISK: Resilience/Protective Factors: Patient want to decrease her stress Other factors for this individual that decrease risk: Patient denies a desire to harm self V. Clinician's Formulation of Risk and Determination of level of Care: This is a 38 y.o. female who attempted suicide by cutting her wrist. She acknowledged that her actions were not safe. She stated that she will follow-up with outpatient psy services once discharged. She has become insightf ul about how to better address her current issues. The patient is not impaired by substance. She is able to take care of her ADLs and is not at imminent risk of harm to self or others. Consequently, it is the opinion of the treatment team that the patient is at low risk of suicide and does not meet criteria to continue an involuntary psychiatric hold. Estimation of Imminent Risk: Low due to the above explanation. Determination of Level of Care based on Suicide Risk: Outpatient follow-up. Narrative description of clinical reasoning. Given the fact that the patient is willing to engage in outpatient psy services, it is reasonable to expect that the patient will seek services. At this current time, she is not impulsive and does not have any risk factors to increase the likelihood of her impulsive behavior. Therefore, it is reasonable to expect that the patient will engage in outpatient/rehab services which will reduce further unsafe behaviors. . Plan and Interventions based on Suicide Risk: This patient will likely be stepped down to an outpatient mental health center in the community upon discharge and follow-up within 7 days of her discharge from the hospital. VII. Discharge/After Hours Support Plan: Patient can return back to the ER, call 911 or crisis line if symptoms of depression, anxiety, suicidality return. Recommendation/Plan: Rescind 1013. Risk/Benefits of SSRI's was discussed with the patient, she prefer talk therapy at this time. A safety contract and suicide risk assessment was completed with the patient. Dispo: The patient can follow up with [facility] in [place], [place] for for outpatient psy services. Staffed with Dr George Vann.
--- NOTE | 2019-02-14 16:07 | Discharge Summary ---
Providers - Providers Date of Admission: 02/11/19 15:13 Date of discharge: 02/14/19 Attending physician: SHALA AGEE 02/13/19 09:54 Consult to Mental Health [CONS] Urgent Reason For Exam: for Psych evaluation Place consult to:: [facility] Notified:: yes Phone number called:: [phone] Was contact made?: Yes If yes, spoke with:: Tong Time called:: 10:55 Primary care physician: JOSE ANTONIO DAVE MD Hospitalization Reason for admission: Left lower extremity DVT/PE, Recent hx of suicidal attempt Condition: Stable Pertinent studies: -VQ scan -BLE Venous Doppler US Procedures: None Hospital course: Final discharge diagnosis: -Left lower extremity DVT/PE -History of bipolar disorder with recent suicidal attempt -Mild hypokalemia -H/O migraine headaches -Chronic hypotension Hospital course: On admission, patient was placed on heparin drip. She was also continued on 1013 due to recent suicide attempt. Thereafter, the heparin drip was discontinued and she was started on oral anticoagulation with eliquis. She later developed hypokalemia for which she received supplements with resolution. On subsequent review by the mental health team, the 1013 was discontinued and the patient was cleared for home discharge with outpatient psychiatric clinic follow-up. Of note, due to patient's possible family history of thrombus/embolus, her PCP will need to follow up on the need for hematology clinic referral if the history is established. Disposition: -01 TO HOME OR SELFCARE Time spent for discharge: 35 minutes Core Measure Documentation - Palliative Care Palliative Care/ Comfort Measures: Not Applicable - Core Measures Any of the following diagnoses?: none Exam - Constitutional Vitals: Temp Pulse Resp BP Pulse Ox 98.2 F 82 16 109/79 99 02/14/19 11:18 02/14/19 11:18 02/14/19 11:18 02/14/19 11:18 02/14/19 11:18 General appearance: Present: no acute distress, well-nourished - EENT Eyes: Present: PERRL, EOM intact ENT: hearing intact, clear oral mucosa - Neck Neck: Present: supple, normal ROM - Respiratory Respiratory effort: normal Respiratory: bilateral: CTA - Cardiovascular Rhythm: regular Heart Sounds: Present: S1 & S2. Absent: rub, click - Extremities Extremities: pulses symmetrical, No edema Peripheral Pulses: within normal limits - Abdominal General gastrointestinal: Present: soft, non-tender, non-distended, normal bowel sounds Female genitourinary: Present: deferred - Integumentary Integumentary: Present: clear, warm, dry - Musculoskeletal Musculoskeletal: gait normal, strength equal bilaterally - Neurologic Neurologic: CNII-XII intact, moves all extremities Plan Follow up with: JOSE ANTONIO DAVE MD [Primary Care Provider] - 3-5 Days Forms: Work/School Release Form Prescriptions: Apixaban [Eliquis] 10 mg PO Q12HR #20 tablet Apixaban [Eliquis] 5 mg PO Q12HR #60 tablet
[2019-02-14 16:13] VITALS: BP 104/61
[2019-02-19] MEDS ORDERED: ELIQUIS PO SCH (10:00)
== END 2019-02-14 17:07 | DRG 299 ==
LOC: ED 11:45 → 4A 15:13
PROVIDERS: ADMIT Internal Medicine; ATTEND Internal Medicine
DX: I82.492 Acute embolism and thrombosis of other specified deep vein of left lower extremity (principal); I26.99 Other pulmonary embolism without acute cor pulmonale; E87.6 Hypokalemia; G43.909 Migraine, unspecified, not intractable, without status migrainosus; I10 Essential (primary) hypertension; F32.9 Major depressive disorder, single episode, unspecified; R45.851 Suicidal ideations; Z91.041 Radiographic dye allergy status; Z72.89 Other problems related to lifestyle
CPT/HCPCS: 36415; 71045; 78582; 80048; 80053; 83036; 83735; 84484; 84703; 85014; 85018; 85025; 85049; 85379; 85520; 85610; 85730; 87116; 93005; 93010; 93970; G0378; A9540; A9558; J1644; J2405; J3010; J7040